=== PATIENT | female | born 1935 | race Caucasian/White ===

== ENCOUNTER 2017-08-04 14:15 | Inpatient (IN) | payer MEDICARE, BC ==
[~2017-08-04] VITALS: Ht 172.7 cm; Wt 68.2 kg
[2017-08-04] MEDS ORDERED: morphine 2 MG/ML inj. syringe IV ONE (14:35)
[2017-08-04] MEDS ORDERED: ondansetron/PF 4mg/2ml inj IV ONE (14:35)
[2017-08-04 15:27] LABS: CLARITY,URINE SLIGHTLY CLOUDY (Clear); COLOR,URINE YELLOW (Yellow); GLUCOSE, URINE NEGATIVE (Neg); KETONES,URINE NEGATIVE (Neg); LEUKOCYTE ESTERASE ,URINE SMALL (Neg); NITRITES, URINE NEGATIVE (Neg); OCCULT BLOOD,URINE LARGE (Neg); PROTEIN,URINE TRACE mg/dl (Neg); UROBILINOGEN,URINE 0.2 E.U/dL (0.2-1.0)
[2017-08-04 15:30] LABS: BASOPHILS % (AUTO) 0.3 % (0-1); EOSINOPHILS # (AUTO) 0.2 X10'3 (0-0.9); EOSINOPHILS % (AUTO) 1.7 % (0-6); HEMATOCRIT 41.9 % (35.0-45.0); HEMOGLOBIN 14.5 g/dl (12.0-16.0); LYMPHOCYTES # (AUTO) 0.7 X10'3 (1.1-4.8); LYMPHOCYTES % (AUTO) 6.7 % (21-51); MEAN CORPUSCULAR HEMOGLOBIN 33.5 PG (27.0-31.0); MEAN CORPUSCULAR HGB CONC 34.7 % (33.0-36.5); MEAN CORPUSCULAR VOLUME 96.4 FL (78-98); MEAN PLATELET VOLUME 8.1 FL (7.4-10.4); MONOCYTES # (AUTO) 0.4 X10'3 (0-0.9); MONOCYTES % (AUTO) 3.6 % (2-12); NEUTROPHILS % (AUTO) 87.7 % (42-75); PLATELET COUNT 172 X10'3 (140-440); RED BLOOD COUNT 4.34 X10'6 (4.20-5.60); RED CELL DISTRIBUTION WIDTH 13.8 % (11.5-14.5); WHITE BLOOD COUNT 10.3 X10'3 (4.5-11.0)
[2017-08-04 15:34] LABS: UA COLLECTION TYPE CLN CATCH MIDSTREAM
[2017-08-04 15:35] LABS: RBC,URINE 0-2 /HPF (0-2); WBC,URINE 0-4 /HPF (0-4)
[2017-08-04 15:36] LABS: BACTERIA,URINE 2+ /HPF (Neg); MUCUS STRANDS FEW /LPF (Neg); SQUAMOUS EPITHELIAL CELL,UR MANY /LPF (FEW)
[2017-08-04 15:44] LABS: ALANINE AMINOTRANSFERASE 22 U/L (12-78); ALBUMIN 3.6 G/DL (3.4-5.0); ALBUMIN/GLOBULIN RATIO 1.2 (1.1-1.5); ALKALINE PHOSPHATASE 93 IU/L (46-116); ANION GAP 9 (8-16); ASPARTATE AMINO TRANSFERASE 64 U/L (10-37); BILIRUBIN,TOTAL 0.4 MG/DL (0.1-1.0); BLOOD UREA NITROGEN 29 MG/DL (7-18); BUN/CREATININE RATIO 21.8 (6.6-38.0); CALCIUM 8.7 MG/DL (8.5-10.1); CHLORIDE 107 MMOL/L (99-107); CREATININE 1.33 MG/DL (0.40-0.90); GLUCOSE 117 MG/DL (70-104); MAGNESIUM 1.8 MG/DL (1.5-2.4); POTASSIUM 4.6 MMOL/L (3.5-5.1); SODIUM 143 MMOL/L (135-145); TOTAL CARBON DIOXIDE 26.7 MMOL/L (24-32); TOTAL PROTEIN 6.6 G/DL (6.4-8.2); eGFR 38 ML/MIN
[2017-08-04] MEDS ORDERED: aspirin 81mg tab.chew PO ONE (15:55)
[2017-08-04] MEDS ORDERED: heparin 10,000 units/1 ML INJ IV PRN (15:55)
[2017-08-04] MEDS ORDERED: heparin 10,000 units/1 ML INJ IV ONE (15:55)
[2017-08-04 16:06] LABS: CLARITY,URINE CLEAR (Clear); COLOR,URINE YELLOW (Yellow); GLUCOSE, URINE NEGATIVE (Neg); KETONES,URINE NEGATIVE (Neg); LEUKOCYTE ESTERASE ,URINE NEGATIVE (Neg); NITRITES, URINE NEGATIVE (Neg); OCCULT BLOOD,URINE MODERATE (Neg); PROTEIN,URINE NEGATIVE (Neg); UROBILINOGEN,URINE 0.2 E.U/dL (0.2-1.0)
[2017-08-04 16:07] LABS: PARTIAL THROMBOPLASTIN TIME 26 SECONDS (22-32)
[2017-08-04 16:11] LABS: UA COLLECTION TYPE STRAIGHT CATH
[2017-08-04 16:12] LABS: AMORPHOUS URATES 1+; BACTERIA,URINE NONE SEEN /HPF (Neg); MUCUS STRANDS FEW /LPF (Neg); RBC,URINE 0-2 /HPF (0-2); SQUAMOUS EPITHELIAL CELL,UR NONE SEEN /LPF (FEW); WBC,URINE NONE SEEN /HPF (0-4)
[2017-08-04 16:13] LABS: HYALINE CASTS 0-3 /LPF (NEGATIVE)
[2017-08-04] MEDS ORDERED: acetaminophen 325mg tablet PO PRN ×2 (16:50)
[2017-08-04] MEDS ORDERED: morphine 2 MG/ML inj. syringe IV PRN ×2 (16:50)
[2017-08-04] MEDS ORDERED: magnesium 4gm in 100ml NS 100 ML IV PRN (16:50)
[2017-08-04] MEDS ORDERED: ondansetron/PF 4mg/2ml inj IV PRN (16:50)
[2017-08-04] MEDS ORDERED: mag hydrox/Alum hydrox/simeth 30ml oral suspension PO PRN (16:50)
[2017-08-04] MEDS ORDERED: potassium Cl 20 mEq SR tablet PO PRN ×2 (16:50)
[2017-08-04] MEDS ORDERED: magnesium Cl slow-release 64mg tablet PO PRN (16:50)
[2017-08-04] MEDS ORDERED: potassium Cl 40MEQ/NS 500ml 500 ML IV PRN ×2 (16:50)
[2017-08-04] MEDS ORDERED: magnesium 2GM in 50ml NS 50 ML IV PRN (16:50)
[2017-08-04] MEDS ORDERED: morphine 5 MG/ML injection IV ONE (17:05)
[2017-08-04] MEDS ORDERED: METO100T7 PO (17:44)
[2017-08-04] MEDS ORDERED: CARB-87 PO (17:44)
[2017-08-04] MEDS ORDERED: ASPI81TA52 PO (17:44)
[2017-08-04] MEDS ORDERED: VALS1TAB48 PO (17:44)
[2017-08-04 18:29] VITALS: BP 143/59
[2017-08-04] MEDS: heparin, porcine 5000 units/ml vial SQ SCH (19:32)
[2017-08-04] MEDS: normal saline 1000ml 1,000 ML IV SCH (19:32)
[2017-08-04] MEDS ORDERED: temazepam 15mg capsule PO PRN (21:00)
[2017-08-04 22:00] VITALS: BP_SYST 128; BP_SYST 131; BP_SYST 164; BP_DIAS 41; BP_DIAS 69; BP_DIAS 72
[2017-08-04] MEDS: HYDROcodone/acetaminophen 5mg/325mg tablet PO PRN (23:02)
[2017-08-05 02:37] LABS: BASOPHILS % (AUTO) 0.7 % (0-1); EOSINOPHILS # (AUTO) 0.1 X10'3 (0-0.9); EOSINOPHILS % (AUTO) 1.9 % (0-6); HEMOGLOBIN 12.1 g/dl (12.0-16.0); LYMPHOCYTES # (AUTO) 0.9 X10'3 (1.1-4.8); LYMPHOCYTES % (AUTO) 14.3 % (21-51); MEAN CORPUSCULAR HEMOGLOBIN 33.3 PG (27.0-31.0); MEAN CORPUSCULAR HGB CONC 34.7 % (33.0-36.5); MEAN PLATELET VOLUME 8.7 FL (7.4-10.4); MONOCYTES # (AUTO) 0.4 X10'3 (0-0.9); MONOCYTES % (AUTO) 6.9 % (2-12); NEUTROPHILS # (AUTO) 4.7 X10'3 (1.8-7.7); NEUTROPHILS % (AUTO) 76.2 % (42-75); PLATELET COUNT 149 X10'3 (140-440); RED BLOOD COUNT 3.64 X10'6 (4.20-5.60); RED CELL DISTRIBUTION WIDTH 13.4 % (11.5-14.5); WHITE BLOOD COUNT 6.2 X10'3 (4.5-11.0)
[2017-08-05] MEDS: normal saline 1000ml 1,000 ML IV SCH ×3 (02:46→16:56)
[2017-08-05 03:03] LABS: ALANINE AMINOTRANSFERASE 49 U/L (12-78); ALBUMIN 2.7 G/DL (3.4-5.0); ALKALINE PHOSPHATASE 103 IU/L (46-116); ANION GAP 9 (8-16); ASPARTATE AMINO TRANSFERASE 79 U/L (10-37); BILIRUBIN,TOTAL 0.4 MG/DL (0.1-1.0); BLOOD UREA NITROGEN 27 MG/DL (7-18); BUN/CREATININE RATIO 21.3 (6.6-38.0); CALCIUM 7.7 MG/DL (8.5-10.1); CHLORIDE 108 MMOL/L (99-107); CHOL/HDL RATIO 2.5 (0.00-4.99); CHOLESTEROL 138 MG/DL (0-200); CREATININE 1.27 MG/DL (0.40-0.90); GLUCOSE 115 MG/DL (70-104); HDL CHOLESTEROL 55 MG/DL (35-60); LDL CHOLESTEROL 70 MG/DL (50-100); MAGNESIUM 1.7 MG/DL (1.5-2.4); POTASSIUM 4.6 MMOL/L (3.5-5.1); SODIUM 142 MMOL/L (135-145); TOTAL CARBON DIOXIDE 24.8 MMOL/L (24-32); TOTAL PROTEIN 5.3 G/DL (6.4-8.2); TRIGLYCERIDES 66 MG/DL (20-135); eGFR 40 ML/MIN
[2017-08-05 05:00] VITALS: BP 102/47
[2017-08-05] MEDS: HYDROcodone/acetaminophen 10/325mg tab PO PRN ×3 (06:08→17:58)
[2017-08-05] MEDS: metoprolol succinate 25mg (24-HOUR) SR. Tablet PO SCH (08:00)
[2017-08-05] MEDS ORDERED: K and/or MAG REPLACEMENT MC SCH (08:00)
[2017-08-05] MEDS: HYDROchlorothiazide 12.5mg capsule PO SCH (08:00)
[2017-08-05] MEDS: carbidoba-levodopa 25-100mg tablet PO SCH (09:07)
[2017-08-05] MEDS: heparin, porcine 5000 units/ml vial SQ SCH ×2 (09:08→20:31)
[2017-08-05] MEDS: aspirin 81mg tablet.DR PO SCH (09:08)
[2017-08-05] MEDS: pantoprazole 40mg Tablet.DR PO SCH (09:08)
[2017-08-05 10:00] VITALS: BP 127/77
[2017-08-05 14:00] VITALS: BP_SYST 128; BP_SYST 147; BP_SYST 148; BP_DIAS 54; BP_DIAS 60; BP_DIAS 67
[2017-08-05] MEDS: morphine 5 MG/ML injection IV PRN ×2 (16:04→20:34)
[2017-08-05 18:00] VITALS: BP 133/48
[2017-08-05 20:00] VITALS: BP_SYST 136; BP_SYST 144; BP_SYST 149; BP_DIAS 112; BP_DIAS 68; BP_DIAS 94
[2017-08-05] MEDS ORDERED: morphine 5 MG/ML injection IV PRN ×2 (20:28)
[2017-08-05 22:26] VITALS: BP 136/68
[2017-08-05] MEDS: HYDROcodone/acetaminophen 5mg/325mg tablet PO PRN (23:32)
[2017-08-06] MEDS: normal saline 1000ml 1,000 ML IV SCH ×2 (03:25→18:46)
[2017-08-06 05:59] LABS: BASOPHILS % (AUTO) 0.4 % (0-1); EOSINOPHILS # (AUTO) 0.1 X10'3 (0-0.9); EOSINOPHILS % (AUTO) 2.9 % (0-6); HEMATOCRIT 36.9 % (35.0-45.0); HEMOGLOBIN 12.7 g/dl (12.0-16.0); LYMPHOCYTES # (AUTO) 0.9 X10'3 (1.1-4.8); LYMPHOCYTES % (AUTO) 19.3 % (21-51); MEAN CORPUSCULAR HEMOGLOBIN 33.6 PG (27.0-31.0); MEAN CORPUSCULAR HGB CONC 34.5 % (33.0-36.5); MEAN CORPUSCULAR VOLUME 97.5 FL (78-98); MEAN PLATELET VOLUME 8.8 FL (7.4-10.4); MONOCYTES # (AUTO) 0.4 X10'3 (0-0.9); NEUTROPHILS # (AUTO) 3.4 X10'3 (1.8-7.7); NEUTROPHILS % (AUTO) 69.4 % (42-75); PLATELET COUNT 132 X10'3 (140-440); RED BLOOD COUNT 3.78 X10'6 (4.20-5.60); RED CELL DISTRIBUTION WIDTH 13.9 % (11.5-14.5); WHITE BLOOD COUNT 4.9 X10'3 (4.5-11.0)
[2017-08-06 06:31] LABS: ALANINE AMINOTRANSFERASE 30 U/L (12-78); ALKALINE PHOSPHATASE 103 IU/L (46-116); ANION GAP 9 (8-16); ASPARTATE AMINO TRANSFERASE 47 U/L (10-37); BILIRUBIN,TOTAL 0.4 MG/DL (0.1-1.0); BLOOD UREA NITROGEN 20 MG/DL (7-18); BUN/CREATININE RATIO 16.5 (6.6-38.0); CALCIUM 7.9 MG/DL (8.5-10.1); CHLORIDE 109 MMOL/L (99-107); CREATININE 1.21 MG/DL (0.40-0.90); GLUCOSE 94 MG/DL (70-104); MAGNESIUM 1.7 MG/DL (1.5-2.4); POTASSIUM 4.3 MMOL/L (3.5-5.1); SODIUM 144 MMOL/L (135-145); TOTAL PROTEIN 6.1 G/DL (6.4-8.2); eGFR 43 ML/MIN
[2017-08-06 06:48] VITALS: BP 174/63
[2017-08-06 08:00] VITALS: BP 128/37
[2017-08-06] MEDS: HYDROcodone/acetaminophen 10/325mg tab PO PRN ×3 (08:01→20:39)
[2017-08-06] MEDS: pantoprazole 40mg Tablet.DR PO SCH (08:38)
[2017-08-06] MEDS: aspirin 81mg tablet.DR PO SCH (08:39)
[2017-08-06] MEDS: metoprolol succinate 25mg (24-HOUR) SR. Tablet PO SCH (08:40)
[2017-08-06] MEDS: carbidoba-levodopa 25-100mg tablet PO SCH (08:40)
[2017-08-06] MEDS: HYDROchlorothiazide 12.5mg capsule PO SCH (08:40)
[2017-08-06] MEDS: heparin, porcine 5000 units/ml vial SQ SCH ×2 (08:41→20:40)
[2017-08-06 12:27] VITALS: BP 128/37
[2017-08-06 17:00] VITALS: BP 149/53
[2017-08-06 22:00] VITALS: BP 167/57
[2017-08-07] MEDS: HYDROcodone/acetaminophen 10/325mg tab PO PRN ×4 (02:46→20:04)
[2017-08-07] MEDS: normal saline 1000ml 1,000 ML IV SCH ×2 (04:46→14:46)
[2017-08-07 06:00] VITALS: BP 177/77
[2017-08-07 06:27] LABS: BASOPHILS % (AUTO) 0.5 % (0-1); EOSINOPHILS # (AUTO) 0.2 X10'3 (0-0.9); EOSINOPHILS % (AUTO) 3.2 % (0-6); HEMATOCRIT 37.2 % (35.0-45.0); LYMPHOCYTES # (AUTO) 0.9 X10'3 (1.1-4.8); MEAN CORPUSCULAR HEMOGLOBIN 33.8 PG (27.0-31.0); MEAN CORPUSCULAR HGB CONC 34.9 % (33.0-36.5); MEAN CORPUSCULAR VOLUME 96.9 FL (78-98); MONOCYTES # (AUTO) 0.4 X10'3 (0-0.9); MONOCYTES % (AUTO) 6.8 % (2-12); NEUTROPHILS # (AUTO) 3.7 X10'3 (1.8-7.7); NEUTROPHILS % (AUTO) 71.5 % (42-75); PLATELET COUNT 135 X10'3 (140-440); RED BLOOD COUNT 3.84 X10'6 (4.20-5.60); RED CELL DISTRIBUTION WIDTH 13.6 % (11.5-14.5); WHITE BLOOD COUNT 5.2 X10'3 (4.5-11.0)
[2017-08-07 06:45] LABS: ALANINE AMINOTRANSFERASE 39 U/L (12-78); ALBUMIN/GLOBULIN RATIO 0.9 (1.1-1.5); ALKALINE PHOSPHATASE 142 IU/L (46-116); ANION GAP 9 (8-16); ASPARTATE AMINO TRANSFERASE 49 U/L (10-37); BILIRUBIN,TOTAL 0.5 MG/DL (0.1-1.0); BLOOD UREA NITROGEN 16 MG/DL (7-18); BUN/CREATININE RATIO 14.2 (6.6-38.0); CALCIUM 8.2 MG/DL (8.5-10.1); CHLORIDE 107 MMOL/L (99-107); CREATININE 1.13 MG/DL (0.40-0.90); GLUCOSE 95 MG/DL (70-104); MAGNESIUM 1.8 MG/DL (1.5-2.4); POTASSIUM 4.2 MMOL/L (3.5-5.1); SODIUM 143 MMOL/L (135-145); TOTAL CARBON DIOXIDE 27.5 MMOL/L (24-32); TOTAL PROTEIN 6.3 G/DL (6.4-8.2); eGFR 46 ML/MIN
[2017-08-07] MEDS: aspirin 81mg tablet.DR PO SCH (07:55)
[2017-08-07] MEDS: pantoprazole 40mg Tablet.DR PO SCH (07:55)
[2017-08-07] MEDS: metoprolol succinate 25mg (24-HOUR) SR. Tablet PO SCH (07:56)
[2017-08-07] MEDS: carbidoba-levodopa 25-100mg tablet PO SCH (07:56)
[2017-08-07] MEDS: HYDROchlorothiazide 12.5mg capsule PO SCH (07:56)
[2017-08-07] MEDS: heparin, porcine 5000 units/ml vial SQ SCH ×2 (07:57→20:05)
[2017-08-07 10:00] VITALS: BP 142/67
[2017-08-07] MEDS ORDERED: cyclobenzaprine 10mg tablet PO PRN (13:00)
[2017-08-07 18:00] VITALS: BP 153/71
[2017-08-07] MEDS: magnesium hydroxide 30ml (MOM) UD suspension PO PRN (20:05)
[2017-08-07 22:00] VITALS: BP 164/58
[2017-08-08] MEDS: normal saline 1000ml 1,000 ML IV SCH ×3 (00:46→20:46)
[2017-08-08] MEDS: HYDROcodone/acetaminophen 10/325mg tab PO PRN ×4 (05:18→20:30)
[2017-08-08 06:05] LABS: BASOPHILS % (AUTO) 0.5 % (0-1); EOSINOPHILS # (AUTO) 0.2 X10'3 (0-0.9); EOSINOPHILS % (AUTO) 3.9 % (0-6); HEMATOCRIT 38.2 % (35.0-45.0); HEMOGLOBIN 13.4 g/dl (12.0-16.0); LYMPHOCYTES # (AUTO) 0.9 X10'3 (1.1-4.8); LYMPHOCYTES % (AUTO) 19.2 % (21-51); MEAN CORPUSCULAR HEMOGLOBIN 34.1 PG (27.0-31.0); MEAN CORPUSCULAR HGB CONC 35.1 % (33.0-36.5); MEAN CORPUSCULAR VOLUME 97.1 FL (78-98); MEAN PLATELET VOLUME 8.4 FL (7.4-10.4); MONOCYTES # (AUTO) 0.4 X10'3 (0-0.9); MONOCYTES % (AUTO) 7.9 % (2-12); NEUTROPHILS # (AUTO) 3.2 X10'3 (1.8-7.7); NEUTROPHILS % (AUTO) 68.5 % (42-75); PLATELET COUNT 170 X10'3 (140-440); RED BLOOD COUNT 3.94 X10'6 (4.20-5.60); RED CELL DISTRIBUTION WIDTH 13.5 % (11.5-14.5); WHITE BLOOD COUNT 4.7 X10'3 (4.5-11.0)
[2017-08-08 06:29] LABS: ALANINE AMINOTRANSFERASE 68 U/L (12-78); ALBUMIN 3.1 G/DL (3.4-5.0); ALBUMIN/GLOBULIN RATIO 0.9 (1.1-1.5); ALKALINE PHOSPHATASE 175 IU/L (46-116); ANION GAP 9 (8-16); ASPARTATE AMINO TRANSFERASE 80 U/L (10-37); BILIRUBIN,TOTAL 0.6 MG/DL (0.1-1.0); BLOOD UREA NITROGEN 16 MG/DL (7-18); BUN/CREATININE RATIO 12.9 (6.6-38.0); CALCIUM 8.5 MG/DL (8.5-10.1); CHLORIDE 104 MMOL/L (99-107); CREATININE 1.24 MG/DL (0.40-0.90); GLUCOSE 103 MG/DL (70-104); MAGNESIUM 2.1 MG/DL (1.5-2.4); POTASSIUM 4.3 MMOL/L (3.5-5.1); SODIUM 143 MMOL/L (135-145); TOTAL CARBON DIOXIDE 29.9 MMOL/L (24-32); TOTAL PROTEIN 6.6 G/DL (6.4-8.2); eGFR 42 ML/MIN
[2017-08-08] MEDS: pantoprazole 40mg Tablet.DR PO SCH (07:42)
[2017-08-08] MEDS: aspirin 81mg tablet.DR PO SCH (07:42)
[2017-08-08] MEDS: HYDROchlorothiazide 12.5mg capsule PO SCH (07:42)
[2017-08-08] MEDS: carbidoba-levodopa 25-100mg tablet PO SCH (07:42)
[2017-08-08] MEDS: heparin, porcine 5000 units/ml vial SQ SCH ×2 (07:43→20:30)
[2017-08-08] MEDS: metoprolol succinate 25mg (24-HOUR) SR. Tablet PO SCH (07:43)
[2017-08-08 08:00] VITALS: BP 147/70
[2017-08-08 10:00] VITALS: BP_SYST 134; BP_SYST 142; BP_SYST 147; BP_DIAS 67; BP_DIAS 70; BP_DIAS 73
[2017-08-08 18:00] VITALS: BP 116/70
[2017-08-08] MEDS: magnesium hydroxide 30ml (MOM) UD suspension PO PRN (20:30)
[2017-08-08 22:00] VITALS: BP 113/63
[2017-08-09] MEDS: HYDROcodone/acetaminophen 5mg/325mg tablet PO PRN (05:09)
[2017-08-09 05:48] LABS: BASOPHILS % (AUTO) 0.4 % (0-1); EOSINOPHILS # (AUTO) 0.2 X10'3 (0-0.9); EOSINOPHILS % (AUTO) 4.5 % (0-6); HEMATOCRIT 36.1 % (35.0-45.0); HEMOGLOBIN 12.5 g/dl (12.0-16.0); LYMPHOCYTES % (AUTO) 23.4 % (21-51); MEAN CORPUSCULAR HEMOGLOBIN 33.7 PG (27.0-31.0); MEAN CORPUSCULAR HGB CONC 34.6 % (33.0-36.5); MEAN CORPUSCULAR VOLUME 97.4 FL (78-98); MEAN PLATELET VOLUME 8.1 FL (7.4-10.4); MONOCYTES # (AUTO) 0.4 X10'3 (0-0.9); MONOCYTES % (AUTO) 9.8 % (2-12); NEUTROPHILS # (AUTO) 2.5 X10'3 (1.8-7.7); NEUTROPHILS % (AUTO) 61.9 % (42-75); PLATELET COUNT 175 X10'3 (140-440); RED BLOOD COUNT 3.71 X10'6 (4.20-5.60); RED CELL DISTRIBUTION WIDTH 13.6 % (11.5-14.5); WHITE BLOOD COUNT 4.1 X10'3 (4.5-11.0)
[2017-08-09 06:00] VITALS: BP 151/49
[2017-08-09 06:02] LABS: ALANINE AMINOTRANSFERASE 97 U/L (12-78); ALBUMIN 2.7 G/DL (3.4-5.0); ALBUMIN/GLOBULIN RATIO 0.8 (1.1-1.5); ALKALINE PHOSPHATASE 185 IU/L (46-116); ANION GAP 7 (8-16); ASPARTATE AMINO TRANSFERASE 92 U/L (10-37); BILIRUBIN,TOTAL 0.4 MG/DL (0.1-1.0); BLOOD UREA NITROGEN 19 MG/DL (7-18); BUN/CREATININE RATIO 15.3 (6.6-38.0); CALCIUM 8.4 MG/DL (8.5-10.1); CHLORIDE 105 MMOL/L (99-107); CREATININE 1.24 MG/DL (0.40-0.90); GLUCOSE 106 MG/DL (70-104); MAGNESIUM 2.4 MG/DL (1.5-2.4); POTASSIUM 4.3 MMOL/L (3.5-5.1); SODIUM 143 MMOL/L (135-145); TOTAL PROTEIN 5.9 G/DL (6.4-8.2); eGFR 42 ML/MIN
[2017-08-09] MEDS: normal saline 1000ml 1,000 ML IV SCH (06:46)
[2017-08-09] MEDS: HYDROchlorothiazide 12.5mg capsule PO SCH (08:22)
[2017-08-09] MEDS: aspirin 81mg tablet.DR PO SCH (08:22)
[2017-08-09] MEDS: pantoprazole 40mg Tablet.DR PO SCH (08:22)
[2017-08-09] MEDS: metoprolol succinate 25mg (24-HOUR) SR. Tablet PO SCH (08:22)
[2017-08-09] MEDS: heparin, porcine 5000 units/ml vial SQ SCH ×2 (08:23→20:02)
[2017-08-09] MEDS: carbidoba-levodopa 25-100mg tablet PO SCH (08:23)
[2017-08-09 08:26] VITALS: BP 124/68
[2017-08-09 10:00] VITALS: BP 156/75
[2017-08-09] MEDS: HYDROcodone/acetaminophen 10/325mg tab PO PRN ×3 (11:18→20:06)
[2017-08-09 18:00] VITALS: BP 149/76
[2017-08-09 22:00] VITALS: BP 126/65
[2017-08-10] MEDS: HYDROcodone/acetaminophen 10/325mg tab PO PRN ×2 (04:22→12:35)
[2017-08-10 06:00] VITALS: BP 124/55
[2017-08-10 08:05] VITALS: BP 151/71
[2017-08-10] MEDS: aspirin 81mg tablet.DR PO SCH (08:10)
[2017-08-10] MEDS: pantoprazole 40mg Tablet.DR PO SCH (08:10)
[2017-08-10] MEDS: metoprolol succinate 25mg (24-HOUR) SR. Tablet PO SCH (08:10)
[2017-08-10] MEDS: HYDROchlorothiazide 12.5mg capsule PO SCH (08:10)
[2017-08-10] MEDS: carbidoba-levodopa 25-100mg tablet PO SCH (08:11)
[2017-08-10] MEDS: heparin, porcine 5000 units/ml vial SQ SCH (08:11)
[2017-08-10 10:00] VITALS: BP 147/73
[2017-08-10 11:00] VITALS: BP 147/73
== END 2017-08-10 15:30 | disposition home or self-care (01) | DRG 312 ==
LOC: ER 14:17 → ED HOLD 16:46 → ORTHO 4S 18:35
PROVIDERS: ADMIT Internal Medicine; ATTEND Internal Medicine
DX: R55 Syncope and collapse (principal); G20 Parkinson's disease; S09.90XA Unspecified injury of head, initial encounter; N18.3 Chronic kidney disease, stage 3 (moderate); W18.39XA Other fall on same level, initial encounter; H81.10 Benign paroxysmal vertigo, unspecified ear; R94.5 Abnormal results of liver function studies; I10 Essential (primary) hypertension; D18.09 Hemangioma of other sites; I12.9 Hypertensive chronic kidney disease with stage 1 through stage 4 chronic kidney disease, or unspecified chronic kidney disease; M48.00 Spinal stenosis, site unspecified; M25.512 Pain in left shoulder; M54.2 Cervicalgia; Z88.0 Allergy status to penicillin; Z88.8 Allergy status to other drugs, medicaments and biological substances; Z79.82 Long term (current) use of aspirin; Z79.899 Other long term (current) drug therapy; Y93.89 Activity, other specified; Y92.89 Other specified places as the place of occurrence of the external cause; Y99.8 Other external cause status
CPT/HCPCS: 36415; 70450; 70544; 70551; 71045; 72125; 72141; 73030; 80053; 80061; 81001; 82948; 83605; 83735; 84484; 85025; 85610; 85730; 87040; 87070; 92616; 93005; 93306; 93880; 96374; 96375; 97110; 97116; 97161; 97530; 99285; J1644; J2270; J2405; J7030

== ENCOUNTER 2021-07-21 15:00 | Outpatient (CLI) | payer MEDICARE, BC ==
[~2021-07-21 15:00] MED LIST: ASPI81TA52 PO; CARB-296 PO; METO100T7 PO; VALS1TAB7 PO
== END 2021-07-21 23:59 | disposition home or self-care (01) ==
LOC: RAD 15:00
PROVIDERS: ATTEND Psychiatry & Neurology Neurology
DX: R13.14 Dysphagia, pharyngoesophageal phase (principal); K21.9 Gastro-esophageal reflux disease without esophagitis
CPT/HCPCS: 74230